=== PATIENT | female | born 1970 | race Caucasian/White ===

== ENCOUNTER 2020-10-11 14:27 | Outpatient (CLI) | payer OTHER, SELFPAY ==
--- NOTE | 2020-10-14 14:01 | WPDPFTINT ---
PFT Interpretation PFT Interpretation: This PFT met all criteria for ATS standards and reproducibility FEV/FVC post bronchodilator 56% FEV1 50% or 1.28 liters FVC 68% or 2.30 liters No bronchodilator challenge was given TLC 100% RV 155% RV/TLC 55% DLCO 75% when adjusted for alveolar volume but not adjusted for hemoglobin Flow volume loops showed significant expiratory coving Impression: moderate airflow obstruction with significant air trapping and mildly reduced diffusion capacity. Unfortunately no bronchodilator challenge was given or ordered which limits the full interpreted ability of this study. This pattern may be suggestive of COPD or asthma.Clinical correlation is advised.
== END 2020-10-11 14:28 | disposition home or self-care (01) ==
LOC: ANHPFT 14:34
DX: J45.20 Mild intermittent asthma, uncomplicated (principal)
CPT/HCPCS: 94375; 94726; 94729